=== PATIENT | female | born 1950 | race Caucasian/White ===

== ENCOUNTER 2022-02-24 11:08 | Outpatient (CLI) | payer MEDICARE, BC, SELFPAY ==
[2022-02-24 10:56] LABS: Albumin* 4.3 g/dL (3.3-5.0); Chloride* 105 mmol/L (96-114); Potassium* 4.4 mmol/L (3.6-5.1); Sodium* 140 mmol/L (135-149)
[2022-02-24 10:58] LABS: Cholesterol* 203 mg/dL (90-199); Creatinine* 0.9 mg/dL (0.5-1.5); Estimated Glomerular Filt Rate 68 ml/min
[2022-02-24 10:59] LABS: Alanine Aminotransferase* 18 U/L (4-35); Alkaline Phosphatase* 80 U/L (40-150); Aspartate Amino Transferase* 27 U/L (12-35); Bilirubin Total* 0.8 mg/dL (0.1-1.5); Blood Urea Nitrogen* 11 mg/dL (7-30); Carbon Dioxide* 29 mmol/L (20-32); Glucose* 110 mg/dL (60-115); Triglycerides* 136 mg/dL (40-149)
[2022-02-24 11:00] LABS: Calcium* 9.2 mg/dL (8.4-10.6); HDL Cholesterol* 64 mg/dL (>=50); LDL Cholesterol Calculated 112 mg/dL (<100)
[2022-02-24 12:32] LABS: TSH With Reflex to FT4* 0.714 uIU/mL (0.270-4.200)
== END 2022-02-24 11:09 | disposition home or self-care (01) ==
PROVIDERS: PCP Internal Medicine; Visit Provider Internal Medicine
DX: E03.9 Hypothyroidism, unspecified (principal); Z13.6 Encounter for screening for cardiovascular disorders
CPT/HCPCS: 80053; 80061; 84443

== ENCOUNTER 2022-04-12 10:00 | Outpatient (RCR) | payer MEDICARE, BC, SELFPAY | END 2022-08-23 10:47 | disposition home or self-care (01) | PROVIDERS: PCP Internal Medicine; Visit Provider Psychiatry & Neurology Neurology | DX: G35 Multiple sclerosis (principal); Z51.89 Encounter for other specified aftercare | CPT/HCPCS: 97110; 97112 ==

== ENCOUNTER 2022-07-19 06:04 | Day surgery (SDC) | payer MEDICARE, BC, SELFPAY ==
[2022-07-19] MEDS: KETOROLAC OPHTH 0.5% 1 DROP EYE-RIGHT ×2 (06:20→06:25)
[2022-07-19] MEDS: TETRACAINE 0.5% OPHTH 1 DROP EYE-RIGHT ×2 (06:20→06:25)
--- NOTE | 2022-07-19 06:25 | SUR.PREOP ---
HOME COVID TEST NEGATIVE, DONE 07/18/22.
[2022-07-19 06:26] VITALS: BMI 30.3
[2022-07-19 06:38] VITALS: BP 158/74; PULSE 74; RESP 16; TEMP 36.6; O2SAT 97
[2022-07-19] MEDS: SODIUM CHLORIDE 0.9 % (FLUSH) 10 ML SYRINGE IVF (06:45)
[2022-07-19] MEDS: TETRACAINE 0.5% OPHTH 2 DROP EYE-RIGHT (07:18)
[2022-07-19] MEDS: BALANCED SALT IRRIG SOLN 15 ML EYE-RIGHT (07:22)
--- NOTE | 2022-07-19 07:46 | W.ANESCHARGE ---
Anesthesia Charges Start Date/Time Anesthesia Start Date: 07/19/22 Anesthesia Start Time: 07:13 Stop Date/Time Anesthesia Stop Date: 07/19/22 Anesthesia Stop Time: 07:46 Summary Emergency: No Extremes of Age: Over 70-CPT 90008
[2022-07-19 08:03] VITALS: BP 176/77; PULSE 63; RESP 16; TEMP 36.4; O2SAT 94
--- NOTE | 2022-07-19 08:53 | W.ANESCHARGE ---
Anesthesia Charges Start Date/Time Anesthesia Start Date: 07/19/22 Anesthesia Start Time: 07:13 Stop Date/Time Anesthesia Stop Date: 07/19/22 Anesthesia Stop Time: 07:46 Summary Emergency: No Extremes of Age: Over 70-CPT 58013
--- NOTE | 2022-07-19 09:16 | W.PM.OPTPROC ---
Procedure Note Date of procedure: 07/19/22 Will [facility] bill your pro fee for this procedure?: Yes Procedure Description: SURGEON: Linda Nichols MD PREOPERATIVE DIAGNOSIS: Nuclear sclerotic cataract, right eye. POSTOPERATIVE DIAGNOSIS: Nuclear sclerotic cataract, right eye. NAME OF OPERATION: Phacoemulsification of cataract with posterior chamber intraocular lens implantation in the right eye. ANESTHESIA: Topical. ESTIMATED BLOOD LOSS: Less than 2 cc. COMPLICATIONS: None. PATHOLOGY SPECIMEN: None. INDICATIONS: See consult note for details. The risks, benefits and alternatives of the procedure were explained to the patient, who elected to proceed and signed informed consent to do so. PROCEDURE: The patient was brought to the pre-holding area where the right eye was identified as the operative eye. I placed my initials above this eye. The patient received eye drops consisting of 0.5% tetracaine, 1% tropicamide, 10% phenylephrine, and 0.5% ketorolac. The patient was then brought to the operating room where the right eye was again identified as the operative eye. The eye was prepped with Betadine and draped in the usual sterile ophthalmic fashion. A #15 super-sharp blade was used to create a paracentesis site. 1% non-preserved intracameral lidocaine was injected into the anterior chamber. Endocoat was injected into the anterior chamber. A 2.4 mm keratome was used to create a three-plane self-sealing incision 1 mm anterior to the temporal limbus. A cystotome was used to create an anterior capsular leaflet. The Utrata forceps were used to extend this to form a continuous curvilinear capsulorrhexis. Hydrodissection was performed. The cataract was removed with phacoemulsification using the [id number] technique. The irrigation and aspiration tip was used to remove the remaining cortex. Healon was injected into the capsular bag. An TIFFANY ZCB00 intraocular lens of 18.0 diopters was injected into the capsular bag. The irrigation and aspiration tip was used to remove the remaining viscoelastic. Balanced salt solution on a cannula was used to hydrate the wound, and the wound was found to be watertight. The pupil was noted to be round. DISPOSITION: The patient was taken to the recovery room and discharged to home in stable condition. The patient was instructed to call me or go to the emergency department with any sudden change, including dramatic loss of vision, severe pain in the eye or eyebrow region, nausea, or vomiting. The patient will follow up in the clinic tomorrow morning. Surgeon: Linda Nichols MD
== END 2022-07-19 08:17 | disposition home or self-care (01) ==
PROVIDERS: PCP Internal Medicine; Visit Provider Ophthalmology
PROC: (CPT 66984; principal; 2022-07-19 06:15)
DX: H25.11 Age-related nuclear cataract, right eye (principal)
CPT/HCPCS: 66984; 00142; 99100; A9270; J2250; J3010; V2632

== ENCOUNTER 2022-07-25 14:42 | Outpatient (REF) | payer MEDICARE, BC, SELFPAY ==
[2022-07-25 17:16] LABS: Basophils Absolute Auto 0.01 K/uL (0.00-0.30); Basophils Percent Auto 0.2 % (0.0-3.0); Eosinophils Absolute Auto 0.12 K/uL (0.00-0.50); Eosinophils Percent Auto 1.8 % (0.0-7.0); Hematocrit 43.7 % (33.0-51.0); Immature Granulocytes Abs Auto 0.01 K/uL (0.00-0.30); Immature Granulocytes Pct Auto 0.2 %; Lymphocytes Percent Auto 7.4 % (20-44); Mean Corpuscular HGB Conc 32 gm/dL (32-36); Mean Corpuscular Hemoglobin 31 pg (26-34); Mean Corpuscular Volume 97 fL (80-100); Monocytes Percent Auto 6.3 % (0.0-11.0); Neutrophils Percent Auto 84.1 % (42.0-72.0); Platelet Count* 311 K/uL (140-440); RDW Coefficient of Variation % 12.5 % (11.5-15.5); Red Blood Count 4.52 m/uL (4.00-5.20); White Blood Count* 6.64 K/uL (4.50-11.00)
[2022-07-25 17:20] LABS: Albumin* 4.3 g/dL (3.3-5.0); Slide Review Reflex No
[2022-07-25 17:23] LABS: Alkaline Phosphatase* 84 U/L (40-150); Aspartate Amino Transferase* 25 U/L (12-35); Bilirubin Direct* 0.2 mg/dL (0.0-0.5); Bilirubin Total* 0.5 mg/dL (0.1-1.5); Total Protein* 6.6 g/dL (6.0-8.3)
[2022-07-25 17:24] LABS: Alanine Aminotransferase* 20 U/L (4-35)
== END 2022-07-25 14:43 | disposition home or self-care (01) ==
LOC: NPINS 14:42
PROVIDERS: Psychiatry & Neurology Neurology; PCP Internal Medicine
DX: Z51.81 Encounter for therapeutic drug level monitoring (principal)
CPT/HCPCS: 80076; 85025

== ENCOUNTER 2022-08-02 06:17 | Day surgery (SDC) | payer MEDICARE, BC, SELFPAY ==
--- NOTE | 2022-08-02 06:32 | SUR.PREOP ---
Home COVID test negative.
--- NOTE | 2022-08-02 06:32 | SUR.PREOP ---
The eye drops brought by the patient (Ketorolac and Prednisolone) are examined and I have determined they are labeled by the patient's pharmacy for this patient as prescribed by the surgeon. The bottles are intact, recently obtained and appear to be correct.
[2022-08-02] MEDS: TETRACAINE 0.5% OPHTH 1 DROP EYE-LEFT ×2 (06:37→06:46)
[2022-08-02] MEDS: KETOROLAC OPHTH 0.5% 1 DROP EYE-LEFT ×2 (06:44→06:52)
[2022-08-02 06:45] VITALS: BMI 30.1
[2022-08-02 06:48] VITALS: BP 165/70; PULSE 67; RESP 16; TEMP 36.9; O2SAT 96
[2022-08-02] MEDS: SODIUM CHLORIDE 0.9 % (FLUSH) 10 ML SYRINGE IVF (07:00)
[2022-08-02] MEDS: TETRACAINE 0.5% OPHTH 2 DROP EYE-LEFT (07:14)
[2022-08-02] MEDS: BALANCED SALT IRRIG SOLN 15 ML EYE-LEFT (07:21)
--- NOTE | 2022-08-02 07:22 | W.ANESCHARGE ---
Anesthesia Charges Start Date/Time Anesthesia Start Date: 08/02/22 Anesthesia Start Time: 07:12 Stop Date/Time Anesthesia Stop Date: 08/02/22 Anesthesia Stop Time: 07:44 Summary Emergency: Yes Extremes of Age: Over 70-CPT 59461
[2022-08-02 07:41] VITALS: BP 163/74; PULSE 61; RESP 16; TEMP 36.6; O2SAT 96
--- NOTE | 2022-08-02 07:46 | P.OPTPRC_ITS ---
Procedure Note Date of procedure: 08/02/22 Will [facility] bill your pro fee for this procedure?: Yes Procedure Description: SURGEON: Linda Nichols MD PREOPERATIVE DIAGNOSIS: Nuclear sclerotic cataract, left eye. POSTOPERATIVE DIAGNOSIS: Nuclear sclerotic cataract, left eye. NAME OF OPERATION: Phacoemulsification of cataract with posterior chamber intraocular lens implantation in the left eye. ANESTHESIA: Topical. ESTIMATED BLOOD LOSS: Less than 2 cc. COMPLICATIONS: None. PATHOLOGY SPECIMEN: None. INDICATIONS: See consult note for details. The risks, benefits and alternatives of the procedure were explained to the patient, who elected to proceed and sign ed informed consent to do so. PROCEDURE: The patient was brought to the pre-holding area where the left eye was identified as the operative eye. I placed my initials above this eye. The patient received eye drops consisting of 0.5% tetracaine, 1% tropicamide, 10% phenylephrine, and 0.5% ketorolac. The patient was then brought to the operating room where the left eye was again identified as the operative eye. The eye was prepped with Betadine and draped in the usual sterile ophthalmic fashion. A #15 super-sharp blade was used to create a paracentesis site. 1% non-preserved intracameral lidocaine was injected into the anterior chamber. Endocoat was injected into the anterior chamber. A 2.4 mm keratome was used to create a three-plane self-sealing incision 1 mm anterior to the temporal limbus. A cystotome was used to create an anterior capsular leaflet. The Utrata forceps were used to extend this to form a continuous curvilinear capsulorrhexis. Hydrodissection was performed. The cataract was removed with phacoemulsification using the cqprdc-[id number]-[id number] technique. The irrigation and aspiration tip was used to remove the remaining cortex. Healon was injected into the capsular bag. An TIFFANY ZCB00 intraocular lens of 17.5 diopters was injected into the capsular bag. The irrigation and aspiration tip was used to remove the remaining viscoelastic. Balanced salt solution on a cannula was used to hydrate the wound, and the wound was found to be watertight. The pupil was noted to be round. DISPOSITION: The patient was taken to the recovery room and discharged to home in stable condition. The patient was instructed to call me or go to the emergency department with any sudden change, including dramatic loss of vision, severe pain in the eye or eyebrow region, nausea, or vomiting. The patient will follow up in the clinic tomorrow morning. Surgeon: Linda Nichols MD
--- NOTE | 2022-08-02 08:09 | SUR.PHASEII ---
The eye drops brought by the patient (Ketorolac and Prednisolone and Ofloxacin) are examined and I have determined they are labeled by the patient's pharmacy for this patient as prescribed by the surgeon. The bottles are intact, recently obtained and appear to be correct.
== END 2022-08-02 08:11 | disposition home or self-care (01) ==
PROVIDERS: PCP Internal Medicine; Visit Provider Ophthalmology
PROC: (CPT 66984; principal; 2022-08-02 06:15)
DX: H25.12 Age-related nuclear cataract, left eye (principal)
CPT/HCPCS: 66984; 00142; 99100; 99140; A9270; J2250; J3010; V2632

== ENCOUNTER 2022-12-28 11:33 | Outpatient (REF) | payer MEDICARE, BC, SELFPAY ==
[2022-12-28 11:46] LABS: Basophils Absolute Auto 0.01 K/uL (0.00-0.30); Basophils Percent Auto 0.2 % (0.0-3.0); Eosinophils Absolute Auto 0.21 K/uL (0.00-0.50); Eosinophils Percent Auto 3.7 % (0.0-7.0); Hematocrit 45.7 % (33.0-51.0); Hemoglobin* 14.5 gm/dL (12.0-16.0); Lymphocytes Percent Auto 10.5 % (20-44); Mean Corpuscular HGB Conc 32 gm/dL (32-36); Mean Corpuscular Hemoglobin 31 pg (26-34); Mean Corpuscular Volume 96 fL (80-100); Monocytes Percent Auto 7.6 % (0.0-11.0); Platelet Count* 327 K/uL (140-440); RDW Coefficient of Variation % 12.5 % (11.5-15.5); Red Blood Count 4.76 m/uL (4.00-5.20); White Blood Count* 5.64 K/uL (4.50-11.00)
[2022-12-28 11:47] LABS: Slide Review Reflex No
[2022-12-28 11:49] LABS: Albumin* 4.4 g/dL (3.3-5.0); Chloride* 103 mmol/L (96-114); Potassium* 3.8 mmol/L (3.6-5.1); Sodium* 141 mmol/L (135-149)
[2022-12-28 11:51] LABS: Aspartate Amino Transferase* 30 U/L (12-35); Carbon Dioxide* 30 mmol/L (20-32); Estimated Glomerular Filt Rate 60 ml/min; Total Protein* 6.9 g/dL (6.0-8.3)
[2022-12-28 11:52] LABS: Alanine Aminotransferase* 25 U/L (4-35); Alkaline Phosphatase* 80 U/L (40-150); Blood Urea Nitrogen* 13 mg/dL (7-30); Glucose* 106 mg/dL (60-115)
[2022-12-28 11:53] LABS: Calcium* 9.5 mg/dL (8.4-10.6)
[2022-12-29 21:42] LABS: Vitamin D, 1,25-Dihydroxy 66.9 pg/mL (19.9-79.3)
== END 2022-12-28 11:34 | disposition home or self-care (01) ==
LOC: NPINS 11:33
PROVIDERS: PCP Internal Medicine; Visit Provider Psychiatry & Neurology Neurology
DX: Z00.00 Encounter for general adult medical examination without abnormal findings (principal); Z79.899 Other long term (current) drug therapy; G35 Multiple sclerosis; F32.A Depression, unspecified; F90.9 Attention-deficit hyperactivity disorder, unspecified type; R21 Rash and other nonspecific skin eruption; R53.1 Weakness; Z13.21 Encounter for screening for nutritional disorder; G25.81 Restless legs syndrome; G40.109 Localization-related (focal) (partial) symptomatic epilepsy and epileptic syndromes with simple partial seizures, not intractable, without status epilepticus; R51.9 Headache, unspecified
CPT/HCPCS: 80053; 82652; 85025

== ENCOUNTER 2023-02-05 09:08 | Outpatient (CLI) | payer MEDICARE, BC, SELFPAY ==
--- NOTE | 2023-02-05 08:56 | W.ANESCHARGE ---
Anesthesia Charges Start Date/Time Anesthesia Start Date: 02/05/23 Anesthesia Start Time: 10:14 Stop Date/Time Anesthesia Stop Date: 02/05/23 Anesthesia Stop Time: 10:37 Summary Extremes of Age - Over 70 or under 1: MDA
--- NOTE | 2023-02-05 08:56 | PM.ANHP ---
HPI - Pre-Anesthesia History of Present Illness Time Seen by Provider: 09:57 Date Seen: 02/05/23 Date of service: 02/05/23 Source: patient and old records reviewed Review of Systems Status of ROS Reports: 10 or more systems reviewed and unremarkable except as noted in History and below [facility] Medical History (Updated 01/02/23 @ 14:40 by Maurisio Castaneda MD) Rash ?R21 - Rash and other nonspecific skin eruption (ICD-10) Colon polyps ?K63.5 - Polyp of colon (ICD-10) ADHD ?F90.9 - Attention-deficit hyperactivity disorder, unspecified type (ICD-10) Hypothyroidism ?E03.9 - Hypothyroidism, unspecified (ICD-10) History of Lyme disease (2003) ?Z86.19 - Personal history of other infectious and parasitic diseases (ICD-10) Generalized anxiety disorder (01/14/13) ?F41.1 - Generalized anxiety disorder (ICD-10) 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) ?B27.90 - Infectious mononucleosis, unspecified without complication (ICD-10) Endometriosis (01/14/13) ?N80.9 - Endometriosis, unspecified (ICD-10) Surgical History (Updated 02/17/22 @ 10:44 by Sofía Diaz) History of tonsillectomy and adenoidectomy (4) ?Z90.89 - Acquired absence of other organs (ICD-10) History of right oophorectomy (1984) ?Z90.721 - Acquired absence of ovaries, unilateral (ICD-10) Family History (Updated 02/17/22 @ 10:46 by Sofía Diaz) Mother Colon cancer Maternal Grandmother Heart disease Father Prostate cancer Social History (Updated 02/17/22 @ 10:47 by Sofía Diaz) Narrative: Exercise involving walking- irregular , 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 Non-smoker Rarely consumes alcohol Smoking Status: Never smoker Do you use any of these nicotine containing products: None How often do you have a drink containing alcohol: monthly or less How often do you have six or more drinks on one occasion: Never AUDIT-C Alcohol total score: 1 Non-prescribed substance use: marijuana (any form) Non-prescribed substance use details: medical marijuana Caffeine: No Little interest or pleasure in doing things: several days Feeling down, depressed, or hopeless: several days Are you using contraception or practicing any form of control: No Meds Home Medications and Allergies Home Medications Medication Instructions Recorded Confirmed Type cholecalciferol (vitamin D3) 25 25 mcg PO DAILY 03/08/22 01/02/23 History mcg (1,000 unit) capsule fingolimod 0.5 mg capsule 0.5 mg PO DAILY 03/08/22 01/02/23 History folic acid 1 mg tablet 1 mg PO QDAY 03/08/22 01/02/23 History gabapentin 100 mg capsule 200 mg PO BID 03/08/22 01/02/23 History multivitamin 1 tab PO QDAY 03/08/22 01/02/23 History cordelia oral suspension .Route 07/12/22 01/02/23 History Allergies Allergy/AdvReac Type Severity Reaction Status Date / Time codeine Allergy Severe chills/swea Verified 01/02/23 14:07 ts/weakness piroxicam Allergy Mild Verified 01/02/23 14:07 procaine Allergy Unknown occurred Verified 01/02/23 14:07 as a child Interferon Allergy Severe lumps all Uncoded 01/02/23 14:07 over head Exam Const Documenting provider has reviewed patient's vital signs: yes Common normals: no apparent distress, oriented x3, healthy appearing, alert and well nourished General appearance: cooperative and comfortable Orientation/consciousness: Yes awake HENMT Common normals: normocephalic Head and scalp: normocephalic Neck & C-Spine Common normals: full ROM Chest Chest: symmetrical chest wall rise Resp Common normals: normal respiratory effort, no retractions, no use of accessory muscles and clear to auscultation bilaterally Auscultation: clear to auscultation bilaterally Cardio Common normals: regular rate, regular rhythm, S1 normal heart sound, S2 normal heart sound and no murmurs Rate: regular rate Rhythm: regular rhythm Heart sounds: S1 normal and S2 normal Neuro Common normals: oriented x3 Sensorium/orientation: awake and alert Assessment and Plan Assessment and plan (1) Colon polyps: Status: Acute Plan ok to proceed with colonoscopy and sedation
--- NOTE | 2023-02-05 10:37 | W.ANESCHARGE ---
Anesthesia Charges Start Date/Time Anesthesia Start Date: 02/05/23 Anesthesia Start Time: 10:14 Stop Date/Time Anesthesia Stop Date: 02/05/23 Anesthesia Stop Time: 10:37
== END 2023-02-05 09:09 | disposition home or self-care (01) ==
LOC: OP CLINIC 09:08
PROVIDERS: PCP Internal Medicine; Visit Provider Internal Medicine
DX: Z12.11 Encounter for screening for malignant neoplasm of colon (principal); K63.5 Polyp of colon; K57.30 Diverticulosis of large intestine without perforation or abscess without bleeding; Z80.0 Family history of malignant neoplasm of digestive organs
CPT/HCPCS: 00811; 45385; 88305; 99100; J2704

== ENCOUNTER 2023-03-08 13:45 | Outpatient (RCR) | payer MEDICARE, BC, SELFPAY | END 2023-07-06 23:59 | disposition home or self-care (01) | PROVIDERS: PCP Internal Medicine; Visit Provider Psychiatry & Neurology Neurology | DX: G35 Multiple sclerosis (principal); M62.81 Muscle weakness (generalized); R53.83 Other fatigue; R26.81 Unsteadiness on feet; Z51.89 Encounter for other specified aftercare | CPT/HCPCS: 97110; 97162 ==

== ENCOUNTER 2023-08-15 13:47 | Outpatient (CLI) | payer MEDICARE, BC, SELFPAY | END 2023-08-15 13:48 | disposition home or self-care (01) | LOC: NFLDREF 08-20 15:43 | PROVIDERS: PCP Internal Medicine; Referring Provider Internal Medicine; Visit Provider Internal Medicine | DX: E03.9 Hypothyroidism, unspecified (principal) | CPT/HCPCS: 84443 ==

== ENCOUNTER 2023-08-27 09:53 | Outpatient (REF) | payer MEDICARE, BC, SELFPAY ==
[2023-08-27 10:17] LABS: Eosinophils Absolute Auto 0.23 K/uL (0.00-0.50); Eosinophils Percent Auto 4.4 % (0.0-7.0); Hematocrit 43.7 % (33.0-51.0); Hemoglobin* 13.6 gm/dL (12.0-16.0); Lymphocytes Percent Auto 7.2 % (20-44); Mean Corpuscular HGB Conc 31 gm/dL (32-36); Mean Corpuscular Hemoglobin 31 pg (26-34); Mean Corpuscular Volume 98 fL (80-100); Monocytes Percent Auto 9.1 % (0.0-11.0); Neutrophils Percent Auto 79.3 % (42.0-72.0); Platelet Count* 277 K/uL (140-440); RDW Coefficient of Variation % 12.7 % (11.5-15.5); Red Blood Count 4.45 m/uL (4.00-5.20); White Blood Count* 5.27 K/uL (4.50-11.00)
[2023-08-27 10:18] LABS: Albumin* 4.1 g/dL (3.3-5.0); Chloride* 102 mmol/L (96-114); Slide Review Reflex No; Sodium* 141 mmol/L (135-149)
[2023-08-27 10:21] LABS: Alanine Aminotransferase* 19 U/L (4-35); Alkaline Phosphatase* 87 U/L (40-150); Anion Gap 9 mEq/L (7-15); Aspartate Amino Transferase* 29 U/L (12-35); Bilirubin Total* 0.8 mg/dL (0.1-1.5); Blood Urea Nitrogen* 8 mg/dL (7-30); Carbon Dioxide* 30 mmol/L (20-32); Estimated Glomerular Filt Rate 59 ml/min; Glucose* 106 mg/dL (60-115); Potassium* 3.7 mmol/L (3.6-5.1); Total Protein* 6.5 g/dL (6.0-8.3)
[2023-08-27 10:22] LABS: Calcium* 8.8 mg/dL (8.4-10.6)
== END 2023-08-27 09:54 | disposition home or self-care (01) ==
LOC: NPINS 09:53
PROVIDERS: PCP Internal Medicine; Visit Provider Psychiatry & Neurology Neurology
DX: G35 Multiple sclerosis (principal); R53.83 Other fatigue
CPT/HCPCS: 80053; 85025

== ENCOUNTER 2024-01-16 11:29 | Outpatient (CLI) | payer MEDICARE, BC, SELFPAY | END 2024-01-16 11:30 | disposition home or self-care (01) | LOC: NFLDREF 11:31 | PROVIDERS: PCP Internal Medicine; Visit Provider Internal Medicine | DX: E03.9 Hypothyroidism, unspecified (principal) | CPT/HCPCS: 84443 ==

== ENCOUNTER 2024-06-10 14:22 | Outpatient (CLI) | payer MEDICARE, BC, SELFPAY ==
--- NOTE | 2024-06-10 14:45 | CRLHL7_ITS ---
For Patients: As a result of the Century Cures Act, medical imaging exams and procedure reports are released immediately into your electronic medical record. You may view this report before your referring provider. If you have questions, please contact your health care provider. INDICATION: Multiple sclerosis. COMPARISON: None available TECHNIQUE: The carotid circulations and the vertebral arteries in the neck were examined using real-time camargo scale imaging (B mode 2D), color flow Doppler and spectral analysis. Degrees of stenosis were determined using SRU 2002 Consensus Panel Criteria. FINDINGS: On the right, the peak systolic internal carotid artery velocity is 103 centimeters per second with a ICA/CCA ratio of RIGHT ICA/CCA. There is 1.3 The findings indicate a normal right carotid bifurcation. On the left, the peak systolic internal carotid artery velocity is 89 centimeters per second with a ICA/CCA ratio of 1.2. There is no plaque in the bifurcation. The findings indicate a normal left carotid bifurcation. There is antegrade flow in both vertebral arteries. IMPRESSION: Normal ultrasound examination of the carotid bifurcations. Dictated by Yovani Mayo MD @ 06/11/2024 9:32:17 AM (Electronically Signed)
== END 2024-06-10 14:23 | disposition home or self-care (01) ==
LOC: US 14:24
PROVIDERS: PCP Internal Medicine; Visit Provider Internal Medicine
DX: G35 Multiple sclerosis (principal); G45.9 Transient cerebral ischemic attack, unspecified
CPT/HCPCS: 93880

== ENCOUNTER 2024-09-01 11:05 | Outpatient (CLI) | payer MEDICARE, BC, SELFPAY | END 2024-09-01 11:06 | disposition home or self-care (01) | LOC: NFLDREF 09-03 01:00 | PROVIDERS: PCP Internal Medicine; Referring Provider Internal Medicine; Visit Provider Internal Medicine | DX: E03.9 Hypothyroidism, unspecified (principal) | CPT/HCPCS: 80048 ==

== ENCOUNTER 2025-01-19 11:33 | Outpatient (CLI) | payer MEDICARE, BC, SELFPAY ==
[2025-01-19 13:43] LABS: Vitamin D 25 Hydroxy* 68 ng/mL (30-80)
--- OUTSIDE RECORDS SUMMARY | 2025-01-20 00:52 | XMS_ITS | Clinical Summary ---
Author Organization [facility] Address [address] [place] [id number] Care Team Providers Care Folding Machine Operator Name Role Phone Unknown, Doctor Primary Care Provider Unavailabl e Allergies Active Allergy Reactions Criticality Noted Date Comments Codeine Rash 02/19/2008 Piroxicam Rash 02/19/2008 Methylphenidate Analogues Hives 02/19/2008 Medications ADDERALL XR 10 MG 24 HR CAP take 1 capsule (10 mg) by oral route once daily in the morning upon awakening 0 02/19/20 08 Active HYDROCORTISONE 5 MG TAB 2 in am and 1 in pm 0 02/19/20 08 Active NEURONTIN 100 MG CAP 2 in am and 2 in pm 0 02/19/20 08 Active PROMETRIUM 200 MG CAP take 1 capsule (200 mg) by oral route once daily at bedtime 05/13/20 08 Active ARMOUR THYROID 90 MG TAB take 1 tablet (100 mg) by oral route once at bedtime 06/12/20 08 Active MEDICATION ORDER COMPOSER iodoral 1 daily (iodine supplement) 0 10/17/19 09 Active VITAMIN B-12 1,000 MCG/ML INJECTIONIndicatio ns:Multiple sclerosis (HC) inject at home every week 1 0 02/19/20 09 Active FISH OIL 1,000 MG CAPIndications:Mul tiple sclerosis (HC) once per day 0 0 02/19/20 09 Active [id number] TABIndications:Uns pecified hypothyroidism 0 0 02/19/20 09 Active escitalopram (LEXAPRO) 20 mg tablet take 1 tablet (20 mg) by oral route once daily 0 08/02/19 10 Active interferon beta-1a, 22 mcg in 0.5 ml, (REBIF) injection Inject 0.5 mL subcutaneous every Sunday, and Sunday. 0 05/31/20 10 Active amphetamine-dextro amphetamine (ADDERALL) 10 mg tablet Take 1 tablet by mouth once daily. 0 05/31/20 10 Active Active Problems Problem Noted Date Diagnosed Date Prediabetes 08/02/2009 FH: GI cancer 03/01/2009 Unspecified cataract 02/18/2009 Multiple sclerosis 07/24/2008 Overview (07/25/2008): Presented with optic neuritis 07/21/08; MRI 07/21/08 with demyelinating lesions. CSF on 07/22/08 with oligoclonal bands present. 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, lead, and uranium Chronic fatigue syndrome Immunizations Immunization Administration Dates Next Due Td (Age >=7 Years) 09/23/1995 Family History Medical History Relation Name Comments Cancer Father @ age 76 o f prostate cancer Cancer Mother @ age 67 o f stomach Other Mother acoustic neurom a Relation Name Status Comments Father Mother Social History Tobacco Use Types Packs/Day Years Used Date Smoking Tobacco: Never Alcohol Use Standard Drinks/Week Comments No 0 (1 standard drink = 0.6 oz pur e alcohol) Comments Unknown Sex and Gender Information Value Date Recorded Sex Assigned at Not on file Legal Sex Female 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 Gender Identity Not on file Sexual Orientation Not on file Obstetrics History Last Filed Vital Signs Vital Sign Reading Time Taken Comments Blood Pressure 124/80 05/31/2010 9:38 AM CDT Pulse 74 05/31/2010 9:38 AM CDT Temperature 36.8 C (98.2 F) 05/31/2010 9:38 AM CDT Respiratory Rate 16 07/25/2008 8:00 AM TREE SURGEON Oxygen Saturation 97% 05/31/2010 9:38 AM CDT Inhaled Oxygen Concentration - - Weight 95 kg (209 lb 6.4 oz) 05/31/2010 9:38 AM CDT Height 179.1 cm (5' 10.5) 07/22/2008 1:27 AM CS T Body Mass Index 29.62 07/22/2008 1:27 AM TREE SURGEON Plan of Treatment Health Maintenance Due Date Last Done Comments Tdap 1961 Depression screening for age 12+ 1962 BMI (ht and wt on same day) for age 18+ 1968 Hepatitis C screening for ag e 18-79 1968 Colonoscopy through age 75 1995 Pneumococcal series for age 50+ (1 of 1 - PCV) 2000 Zoster (shingles) series for age 50+ (1 of 2) 2000 Tetanus booster 09/23/2005 09/23/1995 Mammogram for age 45-75 01/12/2009 01/13/2008 Lipids for age 45-75 07/20/2014 07/20/2009, 03/09/2006, 12/01/2005 DEXA/DXA scan for age 65+ 2015 02/21/2008 COVID-19 vaccine series ( - 2023- season) 2024 Influenza Vaccine (Season Ended) 2025 RSV vaccine for adults or (1 - 1-dose 75+ series) 2025 Hepatitis B series for 19+ Aged Out N o longer eligible based on patient's age to complete this topic Procedures Procedure Name Priority Date/Time Associated Diagnosis Comments LIPID PANEL W REFLEX MEASURED LDL Routine 07/20/2009 10:20 AM TREE SURGEON FH: Colon Cancer XR DXA BONE DENSITY 2 SITES AXIAL Routine 02/21/2008 9:34 AM CDT Postmenopausal Asymptomatic Status XR MAMMO BILAT SCREEN FFDM (IA) Routine 01/13/2008 10:37 AM CDT Screening Mammogram Other from Last 3 Months or Most Recently Relevant to Health Maintenance Results * LIPID PANEL W REFLEX MEASURED LDL (07/20/2009 10:20 AM TREE SURGEON) CHOLESTEROL,TOTAL 172 110 - 199 mg/dL [facility] TRIGLYCERIDES 114 <150 mg/dL [facility] HDL CHOLESTEROL 60 >40 mg/dL [facility] CHOL/HDL RATIO 2.87 <4.51 [facility] LDL CHOLESTEROL 89 <131 mg/dL [facility] PATIENT STATUS Fasting [facility] Blood specimen (specimen) BLOOD SPECIMEN / Unknown 07/20/2009 10:20 AM TREE SURGEON 07/20/2009 10:15 AM TREE SURGEON Pablito Michel MD CHEMISTRY Final Result [facility] [address] [place] [address] * XR DEXA BONE DENSITY 2 SITES (02/21/2008 9:34 AM CDT) Anatomical Region Laterality Modality Spine, HIPS, HIPL, HIPR Other 02/21/2008 9:34 AM CDT Narrative 02/21/2008 1:29 PM CDT Please see scanned document for results of this study. Procedure Note Valerie Escobedo PA - 02/26/2008 Please see scanned document for results of this study. Dylan Cano MD DEXA Final Res ult * XR MAMMO BILAT SCREEN FFDM (01/13/2008 10:37 AM CDT) MAMMOGRAM ACR 1 Negative Anatomical Region Laterality Modality BREASTS, Breast Left, Breast Right Bilateral Mammography 01/13/2008 10:3 7 AM CDT Narrative 01/15/2008 10:42 AM CDT Please see scanned document for results of this study. Procedure Note Deshawn Barker DO - 01/15/2008 Please see scanned document for results of this study. Dylan Cano MD MAMMO Final Res ult from Last 3 Months or Most Recently Relevant to Health Maintenance Insurance [facility] Advance Directives * Full Code (Latest Code Status on File) Date Activated Date Inactivated Comments 07/22/2008 11:08 AM 07/25/2008 2:06 PM Care Teams Folding Machine Operator Relationship Specialty Start Date End Date Unknown, Doctor . PCP - General 03/31/09
== END 2025-01-19 11:34 | disposition home or self-care (01) ==
LOC: NPINS 11:34
PROVIDERS: PCP Internal Medicine; Visit Provider Psychiatry & Neurology Neurology
DX: E55.9 Vitamin D deficiency, unspecified (principal)
CPT/HCPCS: 82306

== ENCOUNTER 2025-05-26 08:46 | Outpatient (CLI) | payer MEDICARE, BC, SELFPAY | END 2025-05-26 08:47 | disposition home or self-care (01) | LOC: NFLDREF 05-27 19:53 | PROVIDERS: PCP Internal Medicine; Referring Provider Internal Medicine; Visit Provider Internal Medicine | DX: E03.9 Hypothyroidism, unspecified (principal) | CPT/HCPCS: 80053; 80061; 84443 ==